=== PATIENT | male | born 1985 | race Caucasian/White ===

== ENCOUNTER 2020-10-29 15:46 | Inpatient (IN) | payer MEDICAID, OTHER ==
[~2020-10-29] VITALS: Ht 170.2 cm; Wt 78.9 kg
[2020-10-29 16:14] LABS: COVID AG,FIA SOURCE NASOPHARYNGEAL
[2020-10-29 16:46] LABS: BASOPHILS % (AUTO) 0.5 % (0.0-2.0); EOSINOPHILS % (AUTO) 0.5 % (1.0-6.0); HEMATOCRIT 46.4 % (41-53); HEMOGLOBIN 15.3 g/dL (13.5-17.5); LYMPHOCYTES # (AUTO) 2.6 K/uL (1.0-4.8); LYMPHOCYTES % (AUTO) 28.4 % (22.0-44.0); MEAN CORPUSCULAR HEMOGLOBIN 29.6 pg (26.0-34.0); MEAN CORPUSCULAR HGB CONC 33.1 G/dL (31.0-37.0); MEAN CORPUSCULAR VOLUME 89 fL (80-100); MONOCYTES # (AUTO) 0.6 K/uL (0.1-1.0); MONOCYTES % (AUTO) 6.5 % (2.0-9.0); NEUTROPHILS # (AUTO) 5.8 K/uL (1.8-7.7); NEUTROPHILS % (AUTO) 64.1 % (40.0-70.0); PLATELET COUNT (AUTO) 249 K/uL (150-450); RED BLOOD CELL COUNT(AUTO) 5.19 MIL/uL (4.50-5.90); RED CELL DISTRIBUTION WIDTH 13.8 % (11.5-14.5)
[2020-10-29 16:50] LABS: ANION GAP 10 mmol/L (8-16); CALCIUM, TOTAL 8.6 mg/dL (8.8-10.5); CARBON DIOXIDE 25 mmol/L (22-29); CHLORIDE 106 mmol/L (98-107); GLOMERULAR FILTR. RATE CALC > 60 mL/min (>60); GLUCOSE,RANDOM 98 mg/dL (70-110); POTASSIUM 3.5 mmol/L (3.5-5.1); SODIUM SERUM 141 mmol/L (136-145); UREA NITROGEN, BLOOD 14 mg/dL (7-18)
[2020-10-29 16:56] LABS: ALANINE AMINOTRANSFERASE 76 U/L (12-78); ALKALINE PHOSPHATASE 80 U/L (46-116); ASPARTATE AMINOTRANSFERASE 45 U/L (15-37); BILIRUBIN,TOTAL 0.3 mg/dL (0.1-1.0); TOTAL PROTEIN, SERUM 8.5 g/dL (6.4-8.2)
[2020-10-29] MEDS ORDERED: HALOPERIDOL LACTATE 5 MG/ML VIAL IM ONE (17:00)
[2020-10-29] MEDS ORDERED: DiphenhydrAMINE HCL 50 MG/ML VIAL IM ONE (17:00)
[2020-10-29] MEDS ORDERED: LORazepam 2 MG/ML VIAL IM ONE (17:00)
[2020-10-29] MEDS ORDERED: ZOLPIDEM TARTRATE 10 MG TABLET PO PRN (19:30)
[2020-10-29] MEDS ORDERED: HALOPERIDOL 5 MG TABLET PO PRN (19:30)
[2020-10-30 05:00] LABS: CHOL/HDL RATIO 2.6 (4.2-7.3)
[2020-10-30 11:00] VITALS: BP 109/67
[2020-10-30 16:01] VITALS: BP 118/69
[2020-10-30] MEDS: LORazepam 2 MG TABLET PO PRN (16:10)
[2020-10-30] MEDS ORDERED: ACETAMINOPHEN 325 MG TABLET PO PRN (16:15)
[2020-10-30 18:00] VITALS: BP 116/75
[2020-10-30 22:00] VITALS: BP 111/72
[2020-10-31 02:00] VITALS: BP 102/60
[2020-10-31 05:40] VITALS: BP 111/76
[2020-10-31 08:00] VITALS: BP 128/81
[2020-10-31] MEDS ORDERED: DOCUSATE SODIUM 100 MG CAPSULE PO PRN (08:30)
[2020-10-31] MEDS ORDERED: ONDANSETRON HCL 4 MG TABLET PO PRN (08:30)
[2020-10-31] MEDS ORDERED: GuaiFENesin/D-METHORPHAN [SUGAR-FREE] 200-20MG/10 ML SYRUP UDCUP PO PRN (08:30)
[2020-10-31] MEDS ORDERED: LOPERAMIDE HCL 2 MG CAPSULE PO PRN (08:30)
[2020-10-31] MEDS ORDERED: CloNIDine HCL 0.1 MG TABLET PO PRN (08:30)
[2020-10-31] MEDS ORDERED: IBUPROFEN 400 MG TABLET PO PRN (08:30)
[2020-10-31] MEDS ORDERED: PETROLATUM,WHITE 28 GM JELLY TP PRN (08:30)
[2020-10-31] MEDS ORDERED: MAGNESIUM HYDROXIDE SUSPENSION 30 ML UDCUP PO PRN (08:30)
[2020-10-31] MEDS ORDERED: ALBUTEROL SULFATE HFA 90 MCG/PUFF 8 GM INHALER IH PRN (08:30)
[2020-10-31] MEDS ORDERED: NICOTINE 14 MG/24 HOUR PATCH TD PRN (08:30)
[2020-10-31] MEDS ORDERED: ACETAMINOPHEN 325 MG TABLET PO PRN (08:30)
[2020-10-31] MEDS ORDERED: MAG HYDROX/AL HYDROX/SIMETH ES 30 ML SUSPENSION UDCUP PO PRN (08:30)
[2020-10-31] MEDS: LORazepam 2 MG TABLET PO PRN (10:48)
[2020-10-31] MEDS: OLANZapine 5 MG TABLET PO SCH ×2 (11:01→20:31)
[2020-10-31 16:22] VITALS: BP 100/61
[2020-11-01 03:25] VITALS: BP 121/68
[2020-11-01 08:41] VITALS: BP 100/60
[2020-11-01] MEDS: OLANZapine 5 MG TABLET PO SCH ×2 (09:16→20:09)
[2020-11-01 16:22] VITALS: BP 105/69
[2020-11-02 09:15] VITALS: BP 111/61
[2020-11-02] MEDS: OLANZapine 5 MG TABLET PO SCH (10:01)
[2020-11-02] MEDS ORDERED: OLAN5TAB2 PO (16:08)
[2020-11-02 16:43] VITALS: BP 120/78
== END 2020-11-02 17:05 | disposition left against medical advice (07) | DRG 750 ==
LOC: EMS 15:59 → UNDOADMIN 18:22 → B3A 18:22 → UNDOADMIN 10-30 09:42 → B3A 10-30 11:13
PROVIDERS: ADMIT Psychiatry & Neurology Child & Adolescent Psychiatry; ATTEND Psychiatry & Neurology Child & Adolescent Psychiatry
DX: F20.9 Schizophrenia, unspecified (principal); F10.129 Alcohol abuse with intoxication, unspecified; F41.9 Anxiety disorder, unspecified; Z20.822 Contact with and (suspected) exposure to COVID-19; Y92.89 Other specified places as the place of occurrence of the external cause; S62.336A Displaced fracture of neck of fifth metacarpal bone, right hand, initial encounter for closed fracture; W22.01XA Walked into wall, initial encounter; S50.01XA Contusion of right elbow, initial encounter
CPT/HCPCS: 87426; 99291; G0480; J1200; J1630; J2060

== ENCOUNTER 2022-02-03 12:29 | Emergency (ER) | payer MEDICAID, OTHER ==
[~2022-02-03] VITALS: Ht 170.2 cm; Wt 77.3 kg
[~2022-02-03 12:29] MED LIST: OLAN5TAB52 PO
[2022-02-03 12:47] VITALS: BP 130/86
[2022-02-03] MEDS ORDERED: BACITRACIN 0.9 GM PACKET OINTMENT TP ONE (13:15)
[2022-02-03] MEDS ORDERED: IBUPROFEN 600 MG TABLET PO ONE (13:15)
== END 2022-02-03 14:39 | disposition home or self-care (01) ==
LOC: EMS 12:31
DX: S90.822A Blister (nonthermal), left foot, initial encounter (principal); S90.821A Blister (nonthermal), right foot, initial encounter; S93.402A Sprain of unspecified ligament of left ankle, initial encounter; F20.9 Schizophrenia, unspecified; F15.90 Other stimulant use, unspecified, uncomplicated; X50.1XXA Overexertion from prolonged static or awkward postures, initial encounter; Y93.01 Activity, walking, marching and hiking; Y92.89 Other specified places as the place of occurrence of the external cause; Y99.8 Other external cause status
CPT/HCPCS: 99283